=== PATIENT | female | born 1975 | race Hispanic/Latino ===

== ENCOUNTER 2018-11-07 21:22 | Emergency (ER) | payer BC ==
[2018-11-07] MEDS ORDERED: HYDROCODONE/ACETAMINOPHEN 5/325 MG TAB ONE (21:48)
[2018-11-07] MEDS ORDERED: ONDANSETRON ODT 4 MG TAB ONE (21:48)
== END 2018-11-08 00:08 | disposition home or self-care (01) ==
LOC: EDH 21:22
DX: S00.03XA Contusion of scalp, initial encounter (principal); M54.5 Low back pain; M54.2 Cervicalgia; Z98.51 Tubal ligation status; Z98.890 Other specified postprocedural states; V80.010A Animal-rider injured by fall from or being thrown from horse in noncollision accident, initial encounter; Y93.52 Activity, horseback riding; Y92.89 Other specified places as the place of occurrence of the external cause; Y99.8 Other external cause status
CPT/HCPCS: 70450; 71045; 72125; 72170; 81025

== ENCOUNTER → 2023-07-17 | Outpatient (CLI) | payer BC ==
[2023-07-17 19:04] LABS: T4 (THYROXINE) 6.5 ug/dL (4.7-13.3); THYROID STIMULATING HORMONE 4.02 uIU/mL (0.36-3.74)
== END | disposition home or self-care (01) ==
LOC: EDH 17:53
PROVIDERS: ATTEND Nurse Practitioner Family
DX: E04.2 Nontoxic multinodular goiter (principal)
CPT/HCPCS: 36415; 84436; 84443; 84481